=== PATIENT | male | born 1960 | race Caucasian/White ===

== ENCOUNTER 2018-08-19 10:23 | Emergency (ER) | payer SELFPAY ==
--- NOTE | 2018-08-19 10:39 | ED.PDOC ---
History of Present Illness - General Chief Complaint: Upper Extremity Injury Stated Complaint: gout in right hand Time Seen by Provider: 08/19/18 10:33 Source: patient Exam Limitations: no limitations - History of Present Illness Initial Comments: Pain and swelling of R wrist and hand for several days. Denies trauma. Has Hx of gout Occurred: last week Pain - Upper Extremity: severe: Wrist, right Method of Injury: unknown Improving Factors: immobilization Worsening Factors: movement Allergies/Adverse Reactions: Allergies NO KNOWN ALLERGY Allergy (Verified 08/19/18 10:32) Home Medications: Ambulatory Orders Colchicine 0.6 mg PO QDAC PRN #3 cap 08/19/18 Indomethacin [Indocin] 50 mg HI Q8HR PRN #15 sup 08/19/18 Review of Systems - Review of Systems Constitutional: States: no symptoms reported Musculoskeletal: States: gout, joint pain, joint swelling Skin: States: change in color Past Medical History (General) - Patient Medical History Hx Other - free text: Previous R wrist Fx's Family Medical History - Family History Mother Family History: No Known Physical Exam - Physical Exam General Appearance: Alert, Comfortable Wrist Exam: limited ROM, pain, swelling Hand Exam: limited ROM, swelling Neuro/Tendon: normal sensation, responds to pain Mental Status: oriented x 3 Skin Exam: other - mild erythema of R wrist and increased heat Departure - Departure Clinical Impression: Gout of right wrist Qualifiers: Gout etiology: idiopathic Chronicity: acute Qualified Code(s): M10.031 - Idiopathic gout, right wrist Disposition: Discharge to Home or Self Care Condition: Fair Departure Forms: ED Discharge - Pt. Copy, Patient Portal Self Enrollment Instructions: DI for Arm Pain Prescriptions: Indomethacin [Indocin] 50 mg HI Q8HR PRN #15 sup PRN Reason: Pain -- Moderate To Severe Colchicine 0.6 mg PO QDAC PRN #3 cap PRN Reason: Moderate To Severe Pain Home Medications: Ambulatory Orders Colchicine 0.6 mg PO QDAC PRN #3 cap 08/19/18 Indomethacin [Indocin] 50 mg HI Q8HR PRN #15 sup 08/19/18
[2018-08-19 10:41] VITALS: TEMP 97.7; O2SAT 99
--- NOTE | 2018-08-19 11:05 | RAD ---
EXAM DESCRIPTION: Wrist,Right 3 Views CLINICAL HISTORY: 57 years, Male, pain and swelling of R wrist, no trauma COMPARISON: None TECHNIQUE: Three views right wrist FINDINGS: Three views right wrist demonstrate osteopenia and moderately advanced degenerative changes. Joint space narrowing at multiple locations is evident. The distal radius is abnormal with what appears to be mature callus formation along the volar and radial aspect of the wrist with an incompletely healed intra-articular fracture of the distal radius in essentially anatomic alignment. I am uncertain whether this represents re-injury to an area of prior fracture or simply incomplete healing of a subacute or older fracture. Alignment is essentially anatomic. This abnormality is best seen on the oblique views Additional acute injuries are not apparent. Some irregularity of the fifth metacarpal shaft proximally suggests possibly an old injury in this location as well. IMPRESSION: 1. Abnormal wrist with osteopenia and degenerative changes. 2. Abnormal distal radius with what appears to be mature callus formation radially and volar aspect with either a recurrent or incompletely healed intra-articular fracture line extending into the wrist joint. This is well seen on only one view. 3. Probable injury to the fifth metacarpal shaft. Electronically signed by: Umesh Bautista MD 08/19/2018 11:03 AM CDT
[2018-08-19 12:23] VITALS: BP 168/88
== END 2018-08-19 11:30 | disposition home or self-care (01) ==
LOC: ER 10:23
DX: M10.031 Idiopathic gout, right wrist (principal); Z87.81 Personal history of (healed) traumatic fracture